=== PATIENT | male | born 1980 ===

== ENCOUNTER 2024-01-13 05:26 | Day surgery (SDC) | payer OTHER ==
[2024-01-07 09:16] LABS: HEMATOCRIT 45.3 % (39.0-48.0); HEMOGLOBIN 15.7 g/dL (13-16.00); MEAN CORPUSCULAR HEMOGLOBIN 30.2 pg (27.00-32.0); MEAN CORPUSCULAR HGB CONC 34.8 g/dl (32.0-36.0); PLATELET COUNT 226 K/uL (150-450); RED CELL DISTRIBUTION WIDTH 13.9 % (11.5-14.5)
[2024-01-07 09:20] LABS: URINE APPEARANCE Clear; URINE BILIRRUBIN Negative (NEGATIVE); URINE BLOOD Negative; URINE COLOR Yellow; URINE GLUCOSE Negative (NEGATIVE); URINE KETONE Trace (NEGATIVE); URINE LEUKOCYTE Negative; URINE NITRATE Negative; URINE PROTEIN Negative (NEGATIVE)
[2024-01-07 09:25] LABS: URINE EPITHELIAL CELLS 2.4 uL (0.0-38.8)
[2024-01-07 09:30] LABS: URINE RBC 0.6 uL (0.0-20.8); URINE WBC 0.9 uL (0.0-23.2)
[2024-01-07 09:33] LABS: INR 1.01; PARTIAL THROMBOPLASTIN TIME 27.3 SECONDS (22.0-34.0)
[2024-01-07 10:06] LABS: BILIRUBIN TOTAL 0.51 mg/dL (0.3-1.2); CALCIUM 9.5 mg/dL (8.5-10.1); CREATININE SERUM 1.05 mg/dL (0.70-1.30); GFR 77.84; POTASSIUM 4.46 mEq/L (3.5-5.1)
[~2024-01-13 05:26] MED LIST: GLIMEPIRIDE4 M1 PO; LEVO-T50 MCG PO; METFORMIN HCL500 M3 PO
[2024-01-13] MEDS ORDERED: CEFAZOLIN SODIUM 1,000 MG VIAL ONE ×2 (07:04→07:27)
[2024-01-13] MEDS ORDERED: DEXAMETHASONE SODIUM PHOSPHATE 4 MG/ML VIAL ONE (07:04)
== END 2024-01-13 13:10 | disposition home or self-care (01) ==
LOC: CIR.AMB 05:26
PROVIDERS: ATTEND Otolaryngology
DX: C73 Malignant neoplasm of thyroid gland (principal); E11.9 Type 2 diabetes mellitus without complications; E03.9 Hypothyroidism, unspecified; F41.9 Anxiety disorder, unspecified; M19.90 Unspecified osteoarthritis, unspecified site; K21.9 Gastro-esophageal reflux disease without esophagitis